=== PATIENT | male | born 1980 ===

== ENCOUNTER 2016-07-19 02:22 | Emergency (ER) | payer SELFPAY ==
[2016-07-19 02:41] VITALS: BP 148/78; PULSE 114; RESP 16; TEMP 99; O2SAT 99
[2016-07-19] MEDS ORDERED: TDAP Vaccine 0.5 mL Syr IM ONE (02:48)
[2016-07-19] MEDS ORDERED: Polymyxin/Trimethoprim Ophth Soln OD STA (03:46)
[2016-07-19] MEDS ORDERED: Ciprofloxacin 0.3% OPTH SOLN OD STA (03:56)
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
--- NOTE | 2016-07-19 07:23 | CT ---
PROCEDURE: CT HEAD WITHOUT CONTRAST. HISTORY: r/o ICH COMPARISON: None available. TECHNIQUE: Axial computed tomography images were obtained through the head/brain without intravenous contrast. Coronal and sagittal reconstructed images. Radiation dose: Total exam DLP = 830.42 mGy-cm. FINDINGS: HEMORRHAGE: No intracranial hemorrhage. BRAIN: No mass effect or edema. No atrophy or chronic microvascular ischemic changes. VENTRICLES: Unremarkable. No hydrocephalus. CALVARIUM: Unremarkable. PARANASAL SINUSES: Unremarkable as visualized. No significant inflammatory changes. MASTOID AIR CELLS: Unremarkable as visualized. No inflammatory changes. OTHER FINDINGS: None. IMPRESSION: No acute intracranial abnormalities. No significant findings to account for the clinical presentation. Concordant results (preliminary interpretation) provided by [facility]. Procedure Completed: 02:57 Preliminary ([facility]) Report: Dictated and Authenticated: 03:22 Final Interpretation: 07:21. July 19, 2016.
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
== END 2016-07-19 04:08 | disposition home or self-care (01) ==
LOC: H.ER 02:22
DX: S09.90XA Unspecified injury of head, initial encounter (principal); Y04.0XXA Assault by unarmed brawl or fight, initial encounter; Y92.89 Other specified places as the place of occurrence of the external cause